=== PATIENT | female | born 1985 | race Asian ===

== ENCOUNTER 2016-08-23 08:38 | Emergency (ER) | payer OTHER ==
[~2016-08-23] VITALS: Ht 175.3 cm; Wt 95.3 kg
[2016-08-23 08:40] VITALS: BP 146/93; TEMP 98.3
== END 2016-08-23 08:40 | disposition left against medical advice (07) ==
LOC: ED 08:38
DX: N93.9 Abnormal uterine and vaginal bleeding, unspecified (principal)
CPT/HCPCS: 99281

== ENCOUNTER 2017-06-06 12:22 | Emergency (ER) | payer OTHER ==
[~2017-06-06] VITALS: Ht 172.7 cm; Wt 95.3 kg
[2017-06-06 14:29] VITALS: BP 120/80; TEMP 97.2
== END 2017-06-06 14:34 | disposition home or self-care (01) ==
LOC: ED 12:22
DX: M25.561 Pain in right knee (principal)
CPT/HCPCS: 99283; J1885

== ENCOUNTER 2017-11-06 04:36 | Emergency (ER) | payer OTHER ==
[~2017-11-06] VITALS: Ht 177.8 cm; Wt 95.3 kg
[2017-11-06 05:10] LABS: PLATELET COUNT 225 K/uL (152-353)
[2017-11-06 05:17] LABS: POTASSIUM 3.5 mmol/L (3.6-5.2)
[2017-11-06 06:13] VITALS: BP 111/73; TEMP 98.2
== END 2017-11-06 06:20 | disposition home or self-care (01) ==
LOC: ED 04:36
DX: R07.89 Other chest pain (principal); N39.0 Urinary tract infection, site not specified
CPT/HCPCS: 36415; 80053; 80307; 81000; 82550; 82553; 84484; 85027; 87077; 87086; 87088; 87185; 87186; 93005; 99283

== ENCOUNTER 2019-08-07 10:03 | Emergency (ER) | payer OTHER ==
[~2019-08-07] VITALS: Ht 175.3 cm; Wt 95.3 kg
[2019-08-07 10:55] VITALS: BP 119/78; TEMP 98.6
== END 2019-08-07 10:55 | disposition home or self-care (01) ==
LOC: ED 10:03
DX: J06.9 Acute upper respiratory infection, unspecified (principal)
CPT/HCPCS: 87502; 87651; 99283

== ENCOUNTER 2019-08-30 15:49 | Outpatient (CLI) | payer OTHER | END 2019-08-30 19:10 | disposition home or self-care (01) | LOC: RAD 15:49 → LABW 15:49 → RAD 19:10 | DX: R05 Cough (principal); J02.0 Streptococcal pharyngitis | CPT/HCPCS: 87502; 87651 ==

== ENCOUNTER 2020-04-22 08:05 | Emergency (ER) | payer OTHER ==
[~2020-04-22] VITALS: Ht 175.3 cm; Wt 94.8 kg
[2020-04-22 08:15] VITALS: TEMP 98.5
[2020-04-22 09:50] VITALS: BP 118/69
== END 2020-04-22 09:50 | disposition home or self-care (01) ==
LOC: ED 08:05
DX: M54.5 Low back pain (principal); G89.29 Other chronic pain; N39.0 Urinary tract infection, site not specified; X50.9XXA Other and unspecified overexertion or strenuous movements or postures, initial encounter; Y92.89 Other specified places as the place of occurrence of the external cause
CPT/HCPCS: 81000; 87077; 87086; 87088; 87186; 96372; 99283; J0696; J1885; J2930

== ENCOUNTER 2021-01-28 10:21 | Emergency (ER) | payer OTHER ==
[~2021-01-28] VITALS: Ht 175.3 cm; Wt 94.8 kg
[2021-01-28 11:54] VITALS: BP 103/82; TEMP 98.3
== END 2021-01-28 11:54 | disposition home or self-care (01) ==
LOC: ED 10:21
DX: S50.861A Insect bite (nonvenomous) of right forearm, initial encounter (principal); S20.469A Insect bite (nonvenomous) of unspecified back wall of thorax, initial encounter; L03.113 Cellulitis of right upper limb; L03.312 Cellulitis of back [any part except buttock and flank]; W57.XXXA Bitten or stung by nonvenomous insect and other nonvenomous arthropods, initial encounter; Y92.89 Other specified places as the place of occurrence of the external cause
CPT/HCPCS: 99281

== ENCOUNTER 2022-02-12 10:43 | Outpatient (CLI) | payer OTHER | END 2022-02-12 19:20 | disposition home or self-care (01) | LOC: US 10:43 | PROVIDERS: ATTEND Nurse Practitioner Family | DX: M54.17 Radiculopathy, lumbosacral region (principal); R60.0 Localized edema ==

== ENCOUNTER 2022-03-16 14:03 | Emergency (ER) | payer OTHER ==
[~2022-03-16] VITALS: Ht 175.3 cm; Wt 94.8 kg
[2022-03-16 15:09] LABS: PLATELET COUNT 242 K/uL (152-353)
[2022-03-16 15:16] LABS: POTASSIUM 3.9 mmol/L (3.6-5.2)
[2022-03-16 15:32] LABS: PARTIAL THROMBOPLASTIN TIME 27.7 SECONDS (24.5-33.6)
[2022-03-16 15:41] VITALS: BP 120/88; TEMP 98.3
== END 2022-03-16 15:41 | disposition home or self-care (01) ==
LOC: ED 14:03
PROVIDERS: Family Medicine
DX: M94.0 Chondrocostal junction syndrome [Tietze] (principal); R07.89 Other chest pain
CPT/HCPCS: 80053; 82550; 84484; 85027; 85610; 85730; 93005; 96372; 99283; J1885; J2930

== ENCOUNTER 2022-06-24 05:57 | Emergency (ER) | payer OTHER ==
[~2022-06-24] VITALS: Ht 175.3 cm; Wt 94.8 kg
[2022-06-24 06:00] VITALS: TEMP 99.2
[2022-06-24 06:41] LABS: PLATELET COUNT 233 K/uL (152-353)
[2022-06-24 06:43] LABS: POTASSIUM 3.6 mmol/L (3.6-5.2); SODIUM 137 mmol/L (136-145)
[2022-06-24 08:30] VITALS: BP 134/85
== END 2022-06-24 08:33 | disposition home or self-care (01) ==
LOC: ED 05:57
PROVIDERS: Emergency Medicine Emergency Medical Services
DX: M79.18 Myalgia, other site (principal); R07.89 Other chest pain; M54.89 Other dorsalgia
CPT/HCPCS: 80053; 81002; 83735; 84484; 85027; 85379; 85610; 93005; 96361; 96374; 96375; 99284; J1885; J2270; J2405; J2930

== ENCOUNTER 2022-07-17 06:36 | Emergency (ER) | payer OTHER ==
[~2022-07-17] VITALS: Ht 175.3 cm; Wt 99.8 kg
[2022-07-17 06:45] VITALS: BP 132/77; TEMP 103.4
== END 2022-07-17 08:07 | disposition home or self-care (01) ==
LOC: ED 06:36
DX: J20.9 Acute bronchitis, unspecified (principal); Z20.822 Contact with and (suspected) exposure to COVID-19
CPT/HCPCS: 81002; 87502; 87635; 87651; 99283; U0001

== ENCOUNTER 2022-07-25 08:49 | Outpatient (CLI) | payer OTHER | END 2022-07-25 22:49 | disposition home or self-care (01) | LOC: MRI 08:49 | PROVIDERS: ATTEND Nurse Practitioner Primary Care | DX: M54.2 Cervicalgia (principal); M54.6 Pain in thoracic spine ==

== ENCOUNTER 2022-07-27 13:12 | Emergency (ER) | payer OTHER ==
[~2022-07-27] VITALS: Ht 175.3 cm; Wt 102.5 kg
[2022-07-27 13:17] VITALS: BP 126/82; TEMP 99.4
[2022-07-27 14:01] LABS: PLATELET COUNT 290 K/uL (152-353)
[2022-07-27 14:05] LABS: POTASSIUM 3.5 mmol/L (3.6-5.2)
== END 2022-07-27 15:00 | disposition home or self-care (01) ==
LOC: ED 13:12
PROVIDERS: Family Medicine
DX: J02.0 Streptococcal pharyngitis (principal); J40 Bronchitis, not specified as acute or chronic; R05.8 Other specified cough; Z20.822 Contact with and (suspected) exposure to COVID-19
CPT/HCPCS: 36415; 80053; 81002; 83880; 85027; 85379; 87502; 87635; 87651; 96372; 99283; J0696; U0001

== ENCOUNTER 2022-08-20 09:14 | Outpatient (CLI) | payer OTHER | END 2022-08-20 19:19 | disposition home or self-care (01) | LOC: RAD 09:14 | PROVIDERS: ATTEND Physician Assistant | DX: M54.59 Other low back pain (principal) ==

== ENCOUNTER 2022-12-23 10:27 | Outpatient (CLI) | payer OTHER | END 2022-12-23 20:22 | disposition home or self-care (01) | LOC: MRI 10:27 | PROVIDERS: ATTEND Student in an Organized Health Care Education/Training Program | DX: M54.16 Radiculopathy, lumbar region (principal); M47.816 Spondylosis without myelopathy or radiculopathy, lumbar region; M48.062 Spinal stenosis, lumbar region with neurogenic claudication ==